=== PATIENT | female | born 1975 | race Caucasian/White ===

== ENCOUNTER 2023-09-20 20:11 | Emergency (ER) | payer OTHER, SELFPAY ==
[2023-09-20 20:28] VITALS: BMI 28.5
[2023-09-20 20:55] LABS: Amphetamines Screen Urine Negative (Negative); Barbiturates Screen Urine Negative (Negative); Benzodiazepines Screen Urine Negative (Negative); Cocaine Screen Urine Negative (Negative); Opiate Screen Urine Negative (Negative); PCP Screen Urine Negative (Negative); THC Screen Urine Negative (Negative)
--- NOTE | 2023-09-21 01:48 | ED_ITS ---
HPI - Medical Clearance General: Chief complaint: Medical Clearance Stated complaint: urine drug screen Time Seen by Provider: 09/20/23 20:26 Source: patient Mode of arrival: ambulatory Limitations: no limitations History of Present Illness: Patient presents emergency department today accompanied by staff for a urine drug screen due to a medication discrepancy for Adderall at shift change. Review of Systems General: Reports: 10 or more systems reviewed and unremarkable except in HPI and below Physical Exam Const: OTHER: Patient is pleasant, social. Answers her own history. Extremity: NARRATIVE EXTREMITY EXAM: Patient is independently ambulatory and weightbearing here in the department. Psych: COMMON NORMALS: mental status grossly normal, Normal thought process present, cooperative, normal affect, speech normal and activity/motor behavior normal SPEECH: Yes normal speech THOUGHT PROCESS: Normal thought process present MDM - Medical Clearance Medical Decision Making Patient produced a urine specimen for urine drug screening. Urine drug screen is negative today. 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 Differential Diagnosis Unlikely urinary tract infection, genital herpes simplex or acute retention of urine Lab Data Laboratory Results Urine Opiates Screen Negative ng/mL (Negative) 09/20/23 20:34 Ur Barbiturates Screen Negative ng/mL (Negative) 09/20/23 20:34 Ur Phencyclidine Scrn Negative ng/mL (Negative) 09/20/23 20:34 Ur Amphetamines Screen Negative ng/mL (Negative) 09/20/23 20:34 U Benzodiazepines Scrn Negative ng/mL (Negative) 09/20/23 20:34 Urine Cocaine Screen Negative ng/mL (Negative) 09/20/23 20:34 U Marijuana (THC) Screen Negative ng/mL (Negative) 09/20/23 20:34 No radiology studies performed this visit Discharge Plan Discharge Patient Disposition: Home Clinical Impression: Encounter for drug screening Discharge Orders: Discharge ED (Routine); Ordered 09/21/23 Ordered By: Beatris Richey Patient Instructions: Opioid Safety, Pain Management Coding Level of Care Code 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
== END 2023-09-20 21:19 | disposition home or self-care (01) ==
PROVIDERS: Emergency Medicine; Emergency Provider Physician Assistant
DX: Z00.00 Encounter for general adult medical examination without abnormal findings (principal)
CPT/HCPCS: 80306; 99283